=== PATIENT | male | born 1970 | race Caucasian/White ===

== ENCOUNTER 2023-12-15 11:33 | Emergency (ER) | payer OTHER ==
[2023-12-15 11:54] VITALS: RESP 18; TEMP 98.6; BMI 26.4
[2023-12-15] MEDS ORDERED: ACETAMINOPHEN INJECTION 100 ML IVPB ONE (13:44)
[2023-12-15] MEDS: SODIUM CHLORIDE 1,000 ML IV STA (13:57)
[2023-12-15] MEDS: ACETAMINOPHEN 1000 MG/100 ML BAG IVPB ONE (13:58)
[2023-12-15 14:07] LABS: BASO % 0.5 % (0-2.0); EOS % 4.1 % (0-4.5); HEMOGLOBIN 17.9 GM/dL (11.7-16.9); LYMPH % 32.8 % (8-40); MCH 31.3 pg (25.7-33.7); MCHC 34.5 g/dl (32.0-35.9); MEAN CELL VOLUME 90.7 fl (80-96); MEAN PLT VOLUME 8.7 fl (7.5-11.1); MONO % 7.1 % (3.8-10.2); NEUT % 55.5 % (42.8-82.8); PLATELET COUNT 196 10^3/uL (134-434); RBC 5.73 M/mm3 (4.00-5.60); RDW 13.5 % (11.9-15.9)
[2023-12-15 14:24] LABS: POTASSIUM 4.3 mmol/L (3.5-5.1)
[2023-12-15 14:26] LABS: CALCIUM 8.9 mg/dL (8.5-10.1)
[2023-12-15 14:27] LABS: BLOOD UREA NITROGEN 10.5 mg/dL (7-18)
[2023-12-15 14:30] LABS: CREATININE 0.9 mg/dL (0.55-1.3)
[2023-12-15 14:31] LABS: BILIRUBIN,TOTAL 0.6 mg/dL (0.2-1); TOT PROT 7.3 g/dl (6.4-8.2)
[2023-12-15 15:15] VITALS: BP 119/75; PULSE 59
== END 2023-12-15 15:15 | disposition home or self-care (01) ==
LOC: JER 11:33
PROC: 3E030NZ Introduction of Analgesics, Hypnotics, Sedatives into Peripheral Vein, Open Approach (ICD-10-PCS; principal; 2023-12-15)
PROC: 3E0337Z Introduction of Electrolytic and Water Balance Substance into Peripheral Vein, Percutaneous Approach (ICD-10-PCS; 2023-12-15)
DX: J40 Bronchitis, not specified as acute or chronic (principal); R07.89 Other chest pain; R05.9 Cough, unspecified; Z20.822 Contact with and (suspected) exposure to COVID-19
CPT/HCPCS: 0241U-QW; 36415; 71046-TC-FY; 80053; 84484; 85025; 93005; 93010; 99285-25; J0131

== ENCOUNTER 2024-06-10 10:23 | Emergency (ER) | payer OTHER ==
[2024-06-10 10:34] VITALS: BP 130/83; PULSE 56; RESP 16; TEMP 97.6; BMI 29.8
[2024-06-10] MEDS ORDERED: KETOROLAC TROMETHAMINE 30 MG/1 ML VIAL ONE (11:27)
[2024-06-10] MEDS ORDERED: LIDOCAINE 4% PATCH TP ONE (11:27)
[2024-06-10] MEDS ORDERED: METHOCARBAMOL 500 MG TABLET ONE (11:29)
[2024-06-10] MEDS: METHOCARBAMOL 500 MG TABLET PO ONE (11:44)
[2024-06-10] MEDS: LIDOCAINE 4% PATCH TP ONE (11:44)
[2024-06-10] MEDS: KETOROLAC TROMETHAMINE 30 MG/1 ML VIAL IM ONE (11:44)
== END 2024-06-10 12:12 | disposition home or self-care (01) ==
LOC: JER 10:23
PROC: 3E0133Z Introduction of Anti-inflammatory into Subcutaneous Tissue, Percutaneous Approach (ICD-10-PCS; principal; 2024-06-10)
DX: M54.41 Lumbago with sciatica, right side (principal)
CPT/HCPCS: 99284-25